=== PATIENT | male | born 1965 | race Caucasian/White ===

== ENCOUNTER 2020-07-09 10:28 | Emergency (ER) | payer MEDICAID, OTHER ==
[~2020-07-09] VITALS: Ht 160 cm; Wt 81.6 kg
[2020-07-09 10:42] VITALS: BP 153/94
== END 2020-07-09 11:47 | disposition home or self-care (01) ==
LOC: ER 10:28
DX: R51.9 Headache, unspecified (principal); M62.838 Other muscle spasm; I10 Essential (primary) hypertension; I25.2 Old myocardial infarction
CPT/HCPCS: 70450

== ENCOUNTER 2020-11-13 10:41 | Emergency (ER) | payer MEDICAID ==
[~2020-11-13] VITALS: Ht 160 cm; Wt 79.4 kg
[2020-11-13 12:01] VITALS: BP 145/98
== END 2020-11-13 13:10 | disposition home or self-care (01) ==
LOC: ER 10:41
DX: S80.12XA Contusion of left lower leg, initial encounter (principal); I10 Essential (primary) hypertension; I25.2 Old myocardial infarction; W22.8XXA Striking against or struck by other objects, initial encounter; Y93.89 Activity, other specified; Y92.89 Other specified places as the place of occurrence of the external cause; Y99.8 Other external cause status
CPT/HCPCS: 73590